=== PATIENT | male | born 1980 | race Caucasian/White ===

== ENCOUNTER → 2018-01-25 13:07 | Outpatient (CLI) | payer OTHER | END | disposition home or self-care (01) | LOC: D.RAD 13:07 | DX: Z02.71 Encounter for disability determination (principal) ==

== ENCOUNTER → 2018-05-24 12:05 | Outpatient (CLI) | payer MEDICAID ==
[~2018-05-24] VITALS: Ht 167.6 cm; Wt 95.3 kg
[2018-05-24 14:14] VITALS: Ht 167.6 cm; Wt 95.3 kg
== END | disposition home or self-care (01) ==
LOC: D.FANS 12:05
DX: E11.65 Type 2 diabetes mellitus with hyperglycemia (principal)